=== PATIENT | female | born 1945 | race Caucasian/White ===

== ENCOUNTER → 2016-12-29 | Outpatient (CLI) | payer OTHER ==
[~2016-12-29] MED LIST: ATOR-24 PO; CALCTAB5 PO; GLUC10007 PO; HYDR25TA5; MULT-222 PO
[2016-12-29 13:24] LABS: BASO % 0.5 %; BASO ABS # 0.03 K/uL (0-0.2); COMPLETE YES; EOS % 3.7 %; HEMATOCRIT 41.6 % (37-47); IG% 0.2 %; LYMPH % 24.4 %; LYMPH ABS # 1.43 K/uL (1.2-3.4); MEAN CORPUSCULAR HEMOGLOBIN 29.9 pg (25-34); MEAN CORPUSCULAR HGB CONC 33.2 g/dl (32-36); MEAN PLATELET VOLUME 11.6 fL (7.4-10.4); MONO % 11.2 %; PLATELET COUNT 234 K/uL (130-400); RED BLOOD COUNT 4.62 M/uL (4.2-5.4); WHITE BLOOD COUNT 5.87 K/uL (4.8-10.8)
[2016-12-29 13:42] LABS: ALT/SGPT 30 U/L (12-78); AST/SGOT 19 U/L (15-37); BLOOD UREA NITROGEN 16 mg/dl (7-18); BUN/CREATININE RATIO 16.8 (10-20); CALCIUM 9.4 mg/dl (8.5-10.1); CARBON DIOXIDE 30 mmol/L (21-32); CHLORIDE 101 mmol/L (98-107); CHOLESTEROL 207 mg/dl (0-200); CREATININE 0.93 mg/dl (0.60-1.20); GLUCOSE 96 mg/dl (70-99); POTASSIUM 3.3 mmol/L (3.5-5.1); SODIUM 141 mmol/L (136-145); TRIGLYCERIDES 132 mg/dl (0-150); VERY LOW DENSITY LIPOPROT CALC 26 mg/dl
[2016-12-29 13:45] LABS: ALB/GLOB RATIO 0.9 (0.9-2); ALKALINE PHOSPHATASE 79 U/L (45-117); CHOLESTEROL/HDL RATIO 3.2; HDL CHOLESTEROL 65 mg/dl; LDL CHOLESTEROL CALCULATED 116 mg/dl
[2016-12-29 14:08] LABS: ESTIMATED AVERAGE GLUCOSE 128 mg/dl; HA1C FLAG Normal (Normal)
== END | disposition home or self-care (01) ==
LOC: C.LABBC 10:21
PROVIDERS: ATTEND Family Medicine
DX: I10 Essential (primary) hypertension (principal); R73.03 Prediabetes; Z13.0 Encounter for screening for diseases of the blood and blood-forming organs and certain disorders involving the immune mechanism; E78.5 Hyperlipidemia, unspecified; Z11.59 Encounter for screening for other viral diseases; R73.09 Other abnormal glucose

== ENCOUNTER → 2017-02-07 | Outpatient (CLI) | payer OTHER ==
--- NOTE | 2017-02-07 13:57 | MAMMOGRAPHY REPORT ---
UNILATERAL LEFT DIGITAL DIAGNOSTIC MAMMOGRAM WITH CAD AND TARGETED LEFT ULTRASOUND: 02/07/2017 CLINICAL HISTORY: History of left mastectomy status post implant reconstruction approximately 40 yea rs ago. The patient reports that the implant contains both silicone and saline. The patient report s a new lump in the left breast since October, which has likely increased in size since she first fe lt it. TECHNIQUE: Current study was also evaluated with a Computer Aided Detection (CAD) system. Left CC and MLO views were obtained. COMPARISON: Comparison is made to exams dated: 02/07/2017 ultrasound, 09/29/2016 mammogram, 09/24/2015 mammogram, 09/07/2014 mammogram, 09/01/2013 mammogram, and 08/28/2012 mammogram - [facility]. BREAST COMPOSITION: The tissue of the left breast is almost entirely fatty. FINDINGS: First, targeted ultrasound was performed of the area of the palpable lump pointed out by the patient , in the lower outer quadrant aspect of the reconstructed breast. At the site of the palpable lump there is an oval mass which is too large to measure on ultrasound but measures at least 4.7 x 2.7 x 3.2 cm. The mass is partially cystic, with mobile debris seen within the mass. There are also thic kened echogenic septations seen within the mass. No clear internal vascularity is evident. No doug r intracapsular rupture of the left breast implant is evident, although evaluation is limited on ult rasound and MRI is more sensitive for detection for rupture. Mammograms were attempted of the left breast to better evaluate the mass. The exam is markedly limi rebeca due to the silicone implant as it is fixed and not movable. There is a mass seen within the lef t lateral breast on the cc view which is partially visualized on the cc view and not visualized on t he MLO view. The visualized margins are circumscribed and there are punctate densities seen within the mass, which likely represent calcifications. No clear extracapsular silicone is seen to suggest extracapsular rupture. The mass is indeterminate and could represent a chronic fluid collection but a mixed cystic and beckie d mass is not excluded. Therefore recommend ultrasound-guided biopsy for further evaluation. The p atient denies any known trauma to this region to suggest hematoma. IMPRESSION: ACR BI-RADS CATEGORY 4: SUSPICIOUS, TARGETED ULTRASOUND ACR BI-RADS CATEGORY 4: SUSPICI OUS 1. Partially cystic mass measuring at least 4.7 cm at the site of the palpable lump in the left low er outer quadrant. The mass is indeterminate and could represent a chronic fluid collection versus a mixed cystic and solid mass. Recommend ultrasound-guided core needle biopsy for further evaluatio n. 2. No definite rupture of the left breast implant although evaluation is limited on ultrasound. If there is clinical concern for implant rupture, consider breast MRI for further evaluation. A phone call was made to the physician's office to confirm faxed results were received. The patient has been verbally notified of the results. She tentatively scheduled the biopsy before leaving the department. Approximately 10% of breast cancers are not detected with mammography. A negative mammographic repor t should not delay biopsy if a clinically suggestive mass is present. Ninoska Heller M.D. ah/:02/07/2017 11:23:50 Sewer Pipe Sorter: Corina SARGENT)(Tiffanie), [facility] letter sent: Abnormal 4/5 BI-RADS Code: ACR BI-RADS Category 4: Suspicious Ultrasound BI-RADS: ACR BI-RADS Category 4: Suspic ious
== END | disposition home or self-care (01) ==
LOC: C.MAMM 09:48
PROVIDERS: ATTEND Plastic Surgery
DX: N64.59 Other signs and symptoms in breast (principal); T85.9XXA Unspecified complication of internal prosthetic device, implant and graft, initial encounter; Y83.2 Surgical operation with anastomosis, bypass or graft as the cause of abnormal reaction of the patient, or of later complication, without mention of misadventure at the time of the procedure; N63 Unspecified lump in breast

== ENCOUNTER → 2017-02-19 | Outpatient (CLI) | payer OTHER ==
--- NOTE | 2017-02-19 10:05 | Discharge Instructions ---
Discharge Instructions Procedure Procedure Date: February 19, 2017. Reason for visit: Left Mass. Discharge Discharge Date: February 19, 2017. Discharge Diagnosis: post left breast ultrasound guided core biopsy Instructions Activity Recommendations: Additional Limitations (see below) Return to School/Work: no limitations Recommended Home Diet: No Limitations Provider Instructions: ACTIVITY RECOMMENDATIONS: * No lifting, pushing, pulling or exercising the affected side for three days. RETURN TO SCHOOL/WORK: * You may return to work/school after the procedure, but do not perform any strenuous activities for 24 to 48 hours. MEDICATIONS: * Tylenol (two 325 mg) every four to six hours if needed for mild pain (if not allergic to Tylenol). DIET: * Resume previous diet. SPECIAL CARE INSTRUCTIONS: * Keep biopsy site dry for 24 hours. May shower after 24 hours, but do not soak (bathe) incision. * May remove Tegaderm (plastic patch) tomorrow AFTER showering. * Leave the steri-strips on for one week. Allow the steri-strips to fall off by themselves. If not off after one week, you may remove them. You may place a Bandaid crosswise over the strips, if desired. * Apply ice 10 minutes on and 10 minutes off as needed. * Wear a bra at bedtime to sleep more comfortably for 2-3 days. * Your referring physician should have the results after approximately 5 to 7 business days. * Call for unusual bleeding, fever, drainage, etc or if you have any questions call [phone] during normal business hours or after hours call Dr Tena, . FOLLOW UP VISIT: Follow-up with Referring Physician as scheduled. Allergies Coded Allergies: Penicillins (Verified Allergy, Severe, ANAPHYLAXIS, 06/29/15) Adhesives (Verified Allergy, Mild, RASH, 06/29/15) Sulfamethoxazole w/Trimethoprim (Verified Allergy, Mild, RASH, 06/29/15) Mariella Miller Recommendations: Call your doctor if: * Temperature above 101 degrees * Pain not relieved by pain medicine ordered * There is increased drainage or redness from any incision * You have any unanswered questions or concerns. Your Doctors Instructions noted above were prepared by provider Radha Tena. Patient Signature Section: Patient Instructions Signature Page Jeanine Hawley Patient (or Guardian) Signature/Date: I have read and understand the instructions given to me by my caregivers. Caregiver/RN/Doctor Signature/Date: The above-named patient and/or guardian has received patient instructions on this date. + Original Patient Signature Page (only) stays with chart. Please make copy for patient.
--- NOTE | 2017-02-19 12:26 | MAMMOGRAPHY REPORT ---
ULTRASOUND GUIDED BIOPSY LEFT BREAST: 02/19/2017 CLINICAL HISTORY: Indeterminate visible and palpable mass in the lower outer quadrant of the left br east. History of remote prior mastectomy and silicone/saline implant reconstruction of the left joe ast. Patient presented for tissue sampling of the mass. COMPARISON: Comparison is made to exams dated: 02/07/2017 mammogram, 02/07/2017 ultrasound, 09/29/2016 mammogram, 09/24/2015 mammogram, 09/07/2014 mammogram, and 09/01/2013 mammogram - [facility]. PATIENT CONSENT: The procedure, risks and benefits were discussed with the patient and informed writ ten consent was obtained. Specific risks to this procedure include: bleeding, infection, puncture of adjacent structure including damage to the implant, nontarget biopsy, sampling error, middle allerg y and medication reaction. PROCEDURE DESCRIPTION: A time out was performed and the left breast was agreed as the site of biopsy . The skin was prepped and draped in the usual sterile fashion. The hypoechoic mixed solid and cysti c mass in the lower outer quadrant of the left reconstructed breast was chosen as the target for bio psy. Subcutaneous and intraparenchymal 1% buffered lidocaine was administered as local anesthesia. First a 22-gauge needle was advanced into the mass to obtain fluid sampling of the internal cystic c omponent. Approximately 20 mL of reddish brownish thick cloudy fluid were aspirated and [facility] to [facility] within the syringe it was collected. Then core biopsy samples were obtained along the periphe ry of the mass targeting a more solid component. 5 core biopsy samples were taken with a 14 gauge A chieve biopsy device. A metallic marker was placed at the biopsy site. Hemostasis was achieved after manual compression. The patient tolerated the procedure well and there was no immediate complicatio n. The core biopsy samples were collected on a moistened Telfa pad and expeditiously sent "fresh" t o the pathology department. Post procedure mammography was deferred. IMPRESSION: ULTRASOUND GUIDED BIOPSY Status post ultrasound-guided aspiration and core biopsy of an indeterminate solid and cystic mass i n the lower outer quadrant of the left breast. A biopsy marker clip was placed at the site of biops y. The patient will receive notification of the pathology results from her referring physician. Radha Tena M.D. ay/:02/19/2017 12:15:27 Real Estate Firm Manager: Valencia CUEVA(R)(M), [facility]
== END | disposition home or self-care (01) ==
LOC: C.MAMM 08:45
PROVIDERS: ATTEND Plastic Surgery
DX: N63 Unspecified lump in breast (principal); R92.0 Mammographic microcalcification found on diagnostic imaging of breast

== ENCOUNTER → 2017-04-16 | Outpatient (CLI) | payer OTHER ==
--- NOTE | 2017-04-16 08:29 | DIAGNOSTIC IMAGING REPORT ---
RIGHT SHOULDER MIN 2 VIEWS CLINICAL HISTORY: Right shoulder pain. Shoulder impingement. COMPARISON: None FINDINGS: Alignment of the right shoulder is anatomic. There is no fracture or suspicious lesion. A 5 m calcific density along the superolateral aspect of the right humeral head suggests calcific tendinitis. There is moderate AC joint arthrosis and mild glenohumeral joint arthrosis. IMPRESSION: 1. No acute fracture. 2. Findings suggestive of calcific tendinitis of the rotator cuff. 3. Moderate osteoarthritis of the right acromioclavicular joint and mild osteoarthrosis of the right glenohumeral joint. Electronically signed by: Ari Joya M.D. 04/16/2017 8:28 AM Dictated Date/Time: 04/16/2017 8:26 AM
--- NOTE | 2017-04-16 08:37 | DIAGNOSTIC IMAGING REPORT ---
LEFT KNEE RADIOGRAPH WITH COMPARISON RIGHT KNEE RADIOGRAPHS CLINICAL HISTORY: Status post total knee replacement. COMPARISON: Knee radiograph December 28, 2014. FINDINGS: Alignment of the total right knee arthroplasty is anatomic. There is no periprosthetic fracture or lucency. There is moderate medial compartment joint space narrowing of the left knee as well as moderate joint space narrowing within the patellofemoral compartment with osteophytosis. Findings have moderately progressed since exam of December 28, 2014. There is no fracture or left knee joint effusion. A few calcific densities projecting posterior to the joint could reflect joint bodies. These measure up to 8 mm. IMPRESSION: 1. Moderate to severe osteoarthritis of the left knee, most pronounced within the medial and patellofemoral compartments. 2. No acute fracture or joint effusion of the left knee. 3. Suspected 8 mm joint body of the left knee. 4. Stable postoperative findings consistent with total right knee arthroplasty. Electronically signed by: Ari Joya M.D. 04/16/2017 8:36 AM Dictated Date/Time: 04/16/2017 8:33 AM
== END | disposition home or self-care (01) ==
LOC: C.RDSM 08:00
PROVIDERS: ATTEND Physician Assistant
DX: M75.41 Impingement syndrome of right shoulder (principal); M19.011 Primary osteoarthritis, right shoulder; M17.12 Unilateral primary osteoarthritis, left knee; Z96.651 Presence of right artificial knee joint

== ENCOUNTER → 2017-06-05 | Outpatient (CLI) | payer OTHER ==
--- NOTE | 2017-06-05 11:33 | DIAGNOSTIC IMAGING REPORT ---
RIGHT SHOULDER 3 VIEWS HISTORY: RIGHT SHOULDER PAIN Right COMPARISON: Right shoulder 04/16/2017. FINDINGS: There is no fracture or dislocation. The right clavicle is intact. Stable 5 mm calcification at the distal supraspinatus tendon. This is consistent with calcific tendinitis. Osteophytes at the posterior rim of the glenoid are again noted. This is consistent with mild degenerative change. There is also moderate degenerative changes within the AC joint. No radiopaque foreign bodies. IMPRESSION: 1. No fracture or dislocation within the right shoulder. 2. Supraspinatus calcific tendinitis, unchanged. 3. Degenerative changes are again noted. Electronically signed by: Melquiades Davidson M.D. 06/05/2017 11:31 AM Dictated Date/Time: 06/05/2017 11:29 AM
== END | disposition home or self-care (01) ==
LOC: C.RDSM 11:10
PROVIDERS: ATTEND Physician Assistant
DX: M25.511 Pain in right shoulder (principal); M75.31 Calcific tendinitis of right shoulder

== ENCOUNTER → 2017-07-30 | Outpatient (CLI) | payer OTHER | END | disposition home or self-care (01) | LOC: C.PATHSPEC 12:50 | PROVIDERS: ATTEND Dermatology | DX: L82.1 Other seborrheic keratosis (principal) ==

== ENCOUNTER → 2017-10-02 | Outpatient (CLI) | payer OTHER ==
--- NOTE | 2017-10-03 15:59 | MAMMOGRAPHY REPORT ---
UNILATERAL RIGHT DIGITAL SCREENING MAMMOGRAM TOMOSYNTHESIS WITH CAD: 10/02/2017 CLINICAL HISTORY: Asymptomatic. Personal history of breast cancer. TECHNIQUE: Right breast tomosynthesis in addition to standard 2D mammography was performed. Current maude pike was also evaluated with a Computer Aided Detection (CAD) system. COMPARISON: Comparison is made to exams dated: 02/19/2017 ultrasound biopsy, 02/07/2017 mammogram, 02/07 ultrasound, 09/29/2016 mammogram, 09/24/2015 mammogram, and 09/07/2014 mammogram - [facility]. BREAST COMPOSITION: The tissue of the right breast is heterogeneously dense, which may obscure small masses. FINDINGS: The parenchymal pattern is similar to prior mammograms. There is stable asymmetry in the l ateral right breast. Stable postsurgical changes with numerous benign rim calcifications scattered i n the right breast. No suspicious mass, architectural distortion or cluster of microcalcifications i s seen. IMPRESSION: ACR BI-RADS CATEGORY 1: NEGATIVE There is no mammographic evidence of malignancy. A 1 year screening mammogram is recommended. The pa tient will receive written notification of the results. Approximately 10% of breast cancers are not detected with mammography. A negative mammographic report should not delay biopsy if a clinically suggestive mass is present. Radha Tena M.D. ay/:10/02/2017 15:38:26 Career Services Director: Essie Gonzalez, [facility] letter sent: Normal 1/2 BI-RADS Code: ACR BI-RADS Category 1: Negative
== END | disposition home or self-care (01) ==
LOC: C.MAMM 09:36
PROVIDERS: ATTEND Internal Medicine
DX: Z12.31 Encounter for screening mammogram for malignant neoplasm of breast (principal); Z85.3 Personal history of malignant neoplasm of breast; Z08 Encounter for follow-up examination after completed treatment for malignant neoplasm; Z90.12 Acquired absence of left breast and nipple

== ENCOUNTER → 2018-01-24 | Outpatient (CLI) | payer OTHER | END | disposition home or self-care (01) | LOC: C.PATHSPEC 18:11 | PROVIDERS: ATTEND Plastic Surgery | DX: L98.9 Disorder of the skin and subcutaneous tissue, unspecified (principal) ==

== ENCOUNTER → 2018-02-07 | Outpatient (CLI) | payer OTHER ==
[2018-02-07 10:39] LABS: HEMATOCRIT 40.3 % (37-47); HEMOGLOBIN 13.4 g/dL (12.0-16.0); MEAN CELL VOLUME 90.4 fL (80-100); MEAN CORPUSCULAR HGB CONC 33.3 g/dl (32-36); PLATELET COUNT 234 K/uL (130-400); RED CELL DISTRIBUTION WIDTH CV 14.2 % (11.5-14.5); RED CELL DISTRIBUTION WIDTH SD 46.9 fL (36.4-46.3); WHITE BLOOD COUNT 5.79 K/uL (4.8-10.8)
[2018-02-07 10:53] LABS: ALBUMIN 3.7 gm/dl (3.4-5.0); ALT/SGPT 33 U/L (12-78); AST/SGOT 18 U/L (15-37); BLOOD UREA NITROGEN 18 mg/dl (7-18); CALCIUM 9.3 mg/dl (8.5-10.1); CARBON DIOXIDE 33 mmol/L (21-32); CHOLESTEROL 178 mg/dl (0-200); CREATININE 0.93 mg/dl (0.60-1.20); GLUCOSE 98 mg/dl (70-99); POTASSIUM 3.5 mmol/L (3.5-5.1); SODIUM 140 mmol/L (136-145)
[2018-02-07 10:55] LABS: ALKALINE PHOSPHATASE 66 U/L (45-117); LDL CHOLESTEROL CALCULATED 96 mg/dl; TOTAL PROTEIN 7.3 gm/dl (6.4-8.2)
[2018-02-07 11:47] LABS: HEMOGLOBIN A1C 6.1 % (4.5-5.6)
== END | disposition home or self-care (01) ==
LOC: C.LABBC 08:26
PROVIDERS: ATTEND Internal Medicine
DX: Z00.00 Encounter for general adult medical examination without abnormal findings (principal); I10 Essential (primary) hypertension; E78.5 Hyperlipidemia, unspecified; R73.03 Prediabetes

== ENCOUNTER 2018-06-12 05:06 | Inpatient (IN) | payer OTHER, BC ==
[2018-05-27 09:43] VITALS: BMI 29.0
--- NOTE | 2018-05-28 14:46 | History and Physical ---
History & Physical Date & Time of Service: May 28, 2018 at 14:31 Chief Complaint: Left Knee Degenerative Joint Disease Primary Care Physician: Mariana Hopper M.D. History of Present Illness Source: patient Patient is a pleasant 73-year-old female who has been treated at our office for many years for left knee pain. Her left knee pain has progressively worsened over the last 6-12 months. Pain is mainly in the medial aspect of her left knee. The pain is increased with activity and weightbearing. She has decreasing activities daily living due to pain. The pain in her knee has affected her range of motion. She occasionally uses her cane to assist with ambulation for long distances. Aggravating activities include walking, going up and down steps and pain at rest and night. She has tried conservative treatment such as nonsteroidal anti-inflammatory drugs, physical therapy, corticosteroid injections and viscose supplementation. She continues to have pain in her left knee. X-rays of her left knee of been obtained and show end- stage osteoarthritis of her left knee with osteophyte formation. Due to her progressively worsening symptoms and failure of conservative treatment, surgical attention was discussed. She elected to proceed with an elective left total knee arthroplasty by Dr. Woodall June 12, 2018. Past Medical/Surgical History Medical Problems: 1. History of breast cancer status post radical mastectomy and reconstructive surgery 2. Hypertension 3. High cholesterol 4. Osteoarthritis Past surgical history: 1. Status post radical mastectomy in 1970s with reconstructive surgery 2. Tonsillectomy with adenoidectomy 3. Left knee arthroscopy 4. Left shoulder rotator cuff repair in November 2013 5. Right total knee arthroplasty in October 2014 Family History Both of her parents were smokers and alcoholics. She states that they both in their 60s. Her father from lung cancer and her mother with COPD. Social History Patient lives with her in a single level home. She does have a walker to use postoperatively. She does drink 1-2 alcoholic drinks per week, occasionally on the weekends.She does have a daily cup of tea. 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 Smoking Status: Never Smoker Alcohol Use: occasionally Drug Use: none Marital Status: Housing status: lives with family Occupational Status: employed Allergies Coded Allergies: Penicillins (Verified Allergy, Severe, ANAPHYLAXIS, 05/27/18) Adhesives (Verified Allergy, Mild, RASH, 05/27/18) Sulfamethoxazole w/Trimethoprim (Verified Allergy, Mild, RASH, 05/27/18) Home Medications Scheduled Atorvastatin (Lipitor), 40 MG PO HS Hydrochlorothiazide (Hydrochlorothiazide), 1 TAB PO QAM Multiple Vitamins W/ Minerals (Multi For Her), 1 TAB PO QAM Review of Systems Occasional headaches due to stress. 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 She wears glasses. Constitutional: No fever, No chills, No sweats, No weight loss Eyes: No worsening of vision, No redness ENT: No hearing loss, No unusual epistaxis, No nasal symptoms, No sore throat, No tinnitus, No dental problems Respiratory: No cough, No sputum, No wheezing, No shortness of breath Cardiovascular: No chest pain, No edema, No palpitations Abdomen: No pain, No nausea, No vomiting, No diarrhea, No constipation Musculoskeletal: + joint pain (Left knee), No swelling (Mild edema of left ankle), No calf pain Genitourinary - Female: No dysuria, No urinary frequency, No urinary urgency, No urinary incontinence, No urinary retention, No hematuria Neurologic: No memory loss, No numbness/tingling Psychiatric: No depression symptoms, No anxiety Endocrine: No fatigue Hematologic / Lymphatic: No abnormal bleeding/bruising, No clotting problems Integumentary: No rash Allergic / Immunologic: No poor healing Physical Exam Height: 5 feet 2 inches Weight: 165 pounds General Appearance: WD/WN, no apparent distress Head: normocephalic, atraumatic Eyes: normal inspection, PERRL, EOMI, sclerae normal ENT: normal ENT inspection, hearing grossly normal, TMs normal, pharynx normal Neck: supple, no adenopathy, thyroid normal, no carotid bruits, trachea midline Respiratory/Chest: chest non-tender, lungs clear, normal breath sounds, no respiratory distress, no accessory muscle use Cardiovascular: regular rate, rhythm, no gallop, no murmur, normal peripheral pulses Abdomen/GI: normal bowel sounds, non tender, soft Extremities/Musculoskelatal: no calf tenderness, normal capillary refill, no pedal edema, normal range of motion, + pertinent finding (Exam of her left knee reveals no effusion. A stable ligamentous exam. Extensor mechanism is intact. No erythema, warmth or ecchymosis to the left knee. She is medial joint line tenderness with palpation. She also has some posterior discomfort with palpation. Range of motion 6 of extension to about 120 of flexion. Mild crepitation with range of motion. Stable ligamentous exam.) Neurologic/Psych: no motor/sensory deficits, alert, normal mood/affect, normal reflexes, oriented x 3 Skin: normal color, warm/dry, no rash Lymphatic: no adenopathy Diagnostics Laboratory Results CBC, BMP, PT/PTT, type and screen, UA, chest x-ray, EKG pending Diagnostic Radiology Diagnostic imaging: Bilateral AP standing, lateral and merchant views of both knees show stable right total knee arthroplasty. Left knee reveals end-stage azat-oh-ogoc arthritis of her medial compartment. With osteophyte formation present no acute fracture dislocation. She does have some Subchondral sclerosis. No subluxation. Impression Assessment and Plan Assessment: End-stage osteoarthritis left knee Plan: Patient is scheduled for an elective left total knee arthroplasty by Dr. Sumanth Woodall on June 12, 2018. Risks and complications of surgery were explained to the patient and include but are not limited to infection, pain , Bleeding, scarring, nerve and blood vessel damage, wound problems, weakness, stiffness, incomplete relief of symptoms, hardware failure, loosening, wear, blood clots, embolisms, fracture, need for manipulation, heart attack, stroke and . All questions were answered and informed consent will be obtained on the day of surgery. She will have preadmission testing later today which we will obtain a preoperative CBC, BMP, PT/PTT, type and screen, UA, EKG, chest x- ray. She will also have preoperative medical clearance by her family physician Dr. Hopper. The surface course was discussed. She does have a walker which she can use after surgery. She would like to be discharged home with in-home health. We will use Coumadin for DVT prophylaxis with an INR goal of 1.5-2.2. She will follow up with Dr. Woodall approximately 2 weeks after surgery for staple removal. All questions were answered today. She will call with any further problems, questions or concerns. Advanced Directives Existing Living Will: Yes Existing Power of Senior Human Resources Representative: Yes Resuscitation Status VTE Prophylaxis Will order VTE Prophylaxis: Yes
--- NOTE | 2018-05-29 10:39 | PAT Medication Instructions ---
Service Date May 29, 2018. Current Home Medication List Atorvastatin (Lipitor), 40 MG PO HS Hydrochlorothiazide (Hydrochlorothiazide), 1 TAB PO QAM Multiple Vitamins W/ Minerals (Multi For Her), 1 TAB PO QAM Medication Instructions For Your Scheduled Surgery - Hold the following medications the morning of surgery: Hydrochlorothiazide (Hydrochlorothiazide), 1 TAB PO QAM Multiple Vitamins W/ Minerals (Multi For Her), 1 TAB PO QAM - Take the following medications as scheduled the night before surgery: Atorvastatin (Lipitor), 40 MG PO HS If you have any questions please call us at [phone] or [phone] or [phone]
[2018-05-29 11:22] LABS: CALCIUM 8.8 mg/dl (8.5-10.1); POTASSIUM 3.2 mmol/L (3.5-5.1)
--- NOTE | 2018-05-29 12:06 | DIAGNOSTIC IMAGING REPORT ---
TWO VIEW CHEST CLINICAL HISTORY: Preoperative examination. FINDINGS: PA and lateral chest radiographs are compared to study dated 10/09/2014. A calcified breast implant projects over the left chest. The cardiomediastinal silhouette is unremarkable noting atherosclerotic calcification of the thoracic aorta. The lungs and pleural spaces are clear. There is no pneumothorax. The skeletal structures are osteopenic. Degenerative change and scoliosis are noted in the thoracic spine. IMPRESSION: No active disease in the chest. Electronically signed by: Adriano Smiley M.D. 05/29/2018 12:05 PM Dictated Date/Time: 05/29/2018 12:04 PM
[2018-05-29 12:24] LABS: BASO % 0.6 %; BASO ABS # 0.04 K/uL (0-0.2); EOS % 2.4 %; EOS ABS # 0.17 K/uL (0-0.5); HEMATOCRIT 43.3 % (37-47); HEMOGLOBIN 14.1 g/dL (12.0-16.0); IG# 0.01 K/uL (0.00-0.02); LYMPH % 20.5 %; LYMPH ABS # 1.44 K/uL (1.2-3.4); MEAN CELL VOLUME 92.3 fL (80-100); MEAN CORPUSCULAR HEMOGLOBIN 30.1 pg (25-34); MEAN CORPUSCULAR HGB CONC 32.6 g/dl (32-36); MONO % 8.8 %; MONO ABS # 0.62 K/uL (0.11-0.59); NEUT % 67.6 %; NEUT ABS # 4.76 K/uL (1.4-6.5); PLATELET COUNT 214 K/uL (130-400); RED CELL DISTRIBUTION WIDTH CV 14.5 % (11.5-14.5); RED CELL DISTRIBUTION WIDTH SD 49.3 fL (36.4-46.3); WHITE BLOOD COUNT 7.04 K/uL (4.8-10.8)
[2018-05-29 12:47] LABS: PTT PATIENT 23.4 SECONDS (21.0-31.0)
[~2018-06-12] VITALS: Ht 157.5 cm; Wt 75.0 kg
[2018-06-12] VITALS (10 sets, daily range): BP systolic 110–204; BP diastolic 65–86; PULSE 62–85; TEMP 36.5–37.2; O2SAT 94–100; Ht 157.5 cm; Wt 75.0 kg
[~2018-06-12 05:06] MED LIST changes: -CALCTAB5 PO; -GLUC10007 PO; -HYDR25TA5; +HYDR25TA5 PO
[2018-06-12] MEDS ORDERED: LACTATED RINGER'S 1000ML IV SCH (06:00)
[2018-06-12] MEDS ORDERED: LACTATED RINGER'S 1000ML 1,000 ML IV SCH (06:00)
[2018-06-12] MEDS ORDERED: VANCOMYCIN IV 1,250 MG in SODIUM CHLORIDE 0.9% 250ML 250 ML IV SCH (06:00)
[2018-06-12] MEDS ORDERED: TRANEXAMIC ACID INJ 1,000 MG x 2 Bags IV SCH ×2 (06:00)
[2018-06-12] MEDS ORDERED: ROPIVACAINE 5MG/ML 30 ML 150 MG, BUPIVACAINE 0.5% MPF INJ 30 ML, EpINEphrine HCL INJ 0.... INFIL SCH ×8 (06:00)
[2018-06-12] MEDS ORDERED: LACTATED RINGER'S 1000ML 500 ML IV SCH (06:00)
[2018-06-12] MEDS ORDERED: POTA10CA28 PO (06:01)
--- NOTE | 2018-06-12 06:15 | History & Physical Bridge Note ---
H&P Re-Evaluation Bridge Note: I have examined the patient, reviewed the History & Physical and in the interval since the performance of the History & Physical I have noted the following changes of clinical significance:consent obtained. No changes noted
[2018-06-12] MEDS ORDERED: ORTHO JOINT ANESTHETIC ONE (06:26)
[2018-06-12] MEDS ORDERED: POVIDONE-IODINE OP SOLN 30 ML BTL ONE (06:26)
[2018-06-12] MEDS ORDERED: ROPIVACAINE 0.5% 5 MG/ML 30 ML VIAL ONE (06:27)
[2018-06-12] MEDS ORDERED: BUPIVACAINE 0.5 % 5 MG/1 ML PF 10ML VIAL ONE (06:27)
[2018-06-12] MEDS ORDERED: BUPIVACAINE 0.25% 30 ML VIAL ONE (06:28)
[2018-06-12] MEDS ORDERED: FENTANYL CITRATE INJ 50 MCG/1 ML 2 ML VIAL ONE ×2 (06:37)
[2018-06-12] MEDS ORDERED: MIDAZOLAM HCL 1 MG/ML 2ML VIAL ONE ×2 (06:38→06:59)
[2018-06-12] MEDS ORDERED: LIDOCAINE HCL 2% 2 ML VIAL (20MG/ML) ONE ×2 (07:48→08:10)
[2018-06-12] MEDS ORDERED: ONDANSETRON INJ 2 MG/ML 2 ML VIAL ONE (07:48)
[2018-06-12] MEDS ORDERED: DiphenhydrAMINE HCL 50 MG/ML VIAL ONE (07:48)
[2018-06-12] MEDS ORDERED: PROPOFOL IV EMULSION 10 MG/ML 20 ML VIAL ONE ×2 (07:48→08:10)
--- NOTE | 2018-06-12 08:27 | [facility] Post Operative Brief Note ---
Immediate Operative Summary Operative Date Jun 12, 2018. Pre-Operative Diagnosis Left Knee Degenerative Joint Disease Post-Operative Diagnosis Left Knee Degenerative Joint Disease Procedure(s) Performed Left Total Knee Arthroplasty Surgeon Dr. Woodall Housekeeping Aid Surgeon(s) Ru Parnell PA-C Estimated Blood Loss 50 ml Findings Consistent with Post-Op Diagnosis Fluids (cc crystalloids) 1400cc Specimens A. Left Knee Bone and Tissue Drains None Anesthesia Type MAC Spinal Regional Complication(s) none Disposition Accompanied Pt To Recover: no Disposition: Recovery Room / PACU Overlapping Procedure I was immediately available: during the entire case
[2018-06-12] MEDS ORDERED: METOCLOPRAMIDE HCL INJ 5 MG/ML 2 ML VIAL IV PRN (08:45)
[2018-06-12] MEDS ORDERED: DiphenhydrAMINE HCL 50 MG/ML VIAL IV PRN (08:45)
[2018-06-12] MEDS ORDERED: VANCOMYCIN CONSULT ACTIVE PRN (08:45)
[2018-06-12] MEDS ORDERED: ACETAMINOPHEN IV 100 ML IV PRN (08:45)
[2018-06-12] MEDS ORDERED: MAGNESIUM HYDROXIDE SUSP 30 ML UDC PO PRN (08:45)
[2018-06-12] MEDS ORDERED: ALUMINUM/MAGNESIUM/SIMETH (MAALOX MAX) 30 ML UDC PO PRN (08:45)
[2018-06-12] MEDS ORDERED: MoRPHine SULFATE 2 MG/ML CARP IV PRN (08:45)
[2018-06-12] MEDS ORDERED: BISACODYL 10 MG SUPP PR PRN (08:45)
[2018-06-12] MEDS ORDERED: OXYCODONE HCL IR 5 MG TAB (IMMEDIATE RELEASE) PO PRN (08:45)
[2018-06-12] MEDS ORDERED: ONDANSETRON INJ 2 MG/ML 2 ML VIAL IV PRN ×2 (08:45→09:00)
[2018-06-12] MEDS ORDERED: ACETAMINOPHEN 325 MG TAB PO PRN (08:45)
--- NOTE | 2018-06-12 08:55 | OPERATIVE REPORT ---
DATE OF OPERATION: 06/12/2018 SURGEON: Sumanth Woodall MD. MATERIAL HANDLING WAREHOUSE SUPERVISOR: Ru Parnell PA-C. No resident or fellow available. PREOPERATIVE DIAGNOSIS: Osteoarthritis, left knee with flexion and varus deformity. POSTOPERATIVE DIAGNOSIS: Same. OPERATION PERFORMED: Cemented left total knee replacement. SUMMARY IMPLANTS: Size 2 left posterior cruciate substituting femur, size 2 mobile bearing tray, tibia size 12.5 x2, posterior cruciate substituting rotating platform insert. Oval domed 3 pegged patella size 35. Two bags of Palacos G cement. ESTIMATED BLOOD LOSS: 50 mL. CRYSTALLOID: 1400 mL. PROPHYLAXIS: DVT prophylaxis with Coumadin. PERIOPERATIVE SITUATION: Medically cleared female with intractable knee pain with physical exam and x-ray consistent with severe medial compartment and patellofemoral disease. At this point in time, wished to proceed with surgical treatment. Risks and consequences discussed. DESCRIPTION OF OPERATION: Patient appropriately identified, site verified, consent verified, vancomycin confirmed as being given. The left lower extremity was prepped and draped in the usual routine fashion. TXA was also given preop. Tourniquet was inflated to 300 mmHg after exsanguination of the limb with a rubber Esmarch bandage for a total of 45 minutes. A midline exposure was utilized. Parapatellar arthrotomy performed. Synovectomy and osteophytes resected. Distal femur entered. Distal femur resected 14 mm. Tibia subluxated after all soft tissue released and 4 mm resected. Extension gap was excellent. Tibia sized to a 2. Femur sized between a 2-1/2 and a 2, was measured 2-1/2, cut 2. There was no notching. Flexion gap was checked, it was excellent. Box cut made. Required 1 slight revision medially to get the implant to seat well, it did. The size 2 tibial tray was then broached and reamed. A 12.5 spacer gave excellent stability and midrange flexion, it did not lose extension. The patella was then sized to a 35. It was resected leaving 15-16 mm. Seating holes made. The trial tracked well. Knee was then injected with the Orthomix. The knee was then irrigated with Betadine Pulsavac. After all implants removed, the permanent cemented into position. After 12 minutes, the tourniquet deflated. After 14 minutes, the knee flexed. The spacer removed. No cement removal was required. Wound was irrigated with Betadine and then permanent liner seated. The knee reduced and the wound closed with #2 Vicryl, 1-0 Vicryl, 2-0 Vicryl, and stainless steel clips. Appropriate dressing applied. The patient was then transferred to recovery in satisfactory condition having tolerated the procedure well. I attest to the content of the Intraoperative Record and any orders documented therein. Any exception s are noted below.
[2018-06-12] MEDS: DOCUSATE SODIUM 100 MG CAP PO SCH ×2 (09:00→21:00)
[2018-06-12] MEDS ORDERED: KETOROLAC TROMETHAMINE 30 MG/ML VIAL IV. PRN (09:00)
[2018-06-12] MEDS ORDERED: ATROPINE SULFATE 0.1 MG/ML 5ML SYR IV PRN (09:00)
[2018-06-12] MEDS ORDERED: MoRPHine SULFATE 10 MG/ML CARP/VIAL IV PRN (09:00)
[2018-06-12] MEDS ORDERED: PHENYLEPHRINE 100MCG/ML 5ML SYR IV PRN (09:00)
[2018-06-12] MEDS: PANTOprazole SOD 40 MG TAB PO SCH (09:00)
[2018-06-12] MEDS ORDERED: EpHEDrine SULFATE INJ 50 MG/ML AMP IV PRN (09:00)
[2018-06-12] MEDS: HYDROCHLOROTHIAZIDE 25 MG TAB PO SCH (09:00)
[2018-06-12] MEDS: MULTIVITAMIN TAB PO SCH (09:00)
[2018-06-12] MEDS: POTASSIUM CHLORIDE 10 MEQ TABCR PO SCH (09:00)
--- NOTE | 2018-06-12 09:02 | DIAGNOSTIC IMAGING REPORT ---
L KNEE 2 VIEWS ROUTINE CLINICAL HISTORY: Postoperative study. COMPARISON: None. DISCUSSION: There are postsurgical changes of a total left knee arthroplasty and patellar resurfacing. The femoral tibial components appear well seated. There are no acute fractures. There are overlying skin shweta. There is air in soft tissues consistent with recent surgery. IMPRESSION: Postsurgical changes of a total left knee arthroplasty. Electronically signed by: Bang Cordero M.D. 06/12/2018 9:00 AM Dictated Date/Time: 06/12/2018 8:59 AM
--- NOTE | 2018-06-12 10:12 | Anesthesiology Progress Note ---
Anesthesia Post Op Note Date & Time Jun 12, 2018 at 10:12 Vital Signs Pain Intensity: 0 Vital Signs Past 12 Hours Date Time Temp Pulse Resp B/P (MAP) Pulse Ox O2 Delivery O2 Flow Rate FiO2 06/12/18 09:10 36.7 67 14 125/67 100 Nasal Cannula 2 06/12/18 09:05 36.7 66 14 133/58 100 Nasal Cannula 2 06/12/18 08:55 72 14 129/62 100 Nasal Cannula 2 06/12/18 08:45 81 14 133/76 100 Oxymask 10 06/12/18 08:35 36.9 94 14 112/62 100 Oxymask 10 06/12/18 05:40 37.2 85 20 204/86 97 Room Air Notes Mental Status: alert / awake / arousable, participated in evaluation Pt Amnestic to Procedure: Yes Nausea / Vomiting: adequately controlled Pain: adequately controlled Airway Patency, RR, SpO2: stable & adequate BP & HR: stable & adequate Hydration State: stable & adequate Anesthetic Complications: no major complications apparent
[2018-06-12] MEDS ORDERED: D5W AND 1/2NSS + 20MEQ KCL 1,000 ML IV SCH (11:00)
[2018-06-12] MEDS: KETOROLAC TROMETHAMINE 15 MG/ML VIAL IV. SCH ×3 (12:09→23:31)
--- NOTE | 2018-06-12 12:35 | [facility] Operative Report ---
Operative Report Operative Date Jun 12, 2018. Pre-Operative Diagnosis Left Knee Degenerative Joint Disease Post-Operative Diagnosis Left Knee Degenerative Joint Disease Procedure(s) Performed Left Total Knee Arthroplasty Surgeon Dr. Woodall Reimbursement Specialist Surgeon(s) Ru Parnell PA-C Estimated Blood Loss 50 ml Findings Left knee end-stage DJD Fluids 1400cc Specimens A. Left Knee Bone and Tissue Drains None Anesthesia Type MAC Spinal Regional Complication(s) none Disposition no Recovery Room / PACU Indications This 73-year-old white female presented to the office with complaints of intractable left knee pain. She had tried injection therapy, activity modification, physical therapy, and oral anti-inflammatories without lasting improvement. She elected to proceed with total knee arthroplasty in hopes of alleviating her pain. She previously had a right total knee arthroplasty and did very well with it. She elected to proceed with the same on the left. Preoperative imaging was obtained. Description of Procedure Patient was administered a spinal anesthetic and then taken to the operating room where she was given sedation. She was prepped and draped in usual sterile fashion. Please see Dr. Woodall's operative report for specifics of the procedure. I was present for the entire case from initial patient positioning through final wound closure. Assistance was provided in patient positioning, tissue retraction, hemostasis, trial implant placement, final implant placement , and final wound closure. Patient was taken to the recovery room in satisfactory condition. I attest to the content of the Intraoperative Record and any orders documented therein. Any exceptions are noted below.
[2018-06-12] MEDS ORDERED: WARF2TAB PO (12:38)
[2018-06-12] MEDS ORDERED: OXYC-57 PO (12:38)
--- NOTE | 2018-06-12 12:53 | Progress Note ---
Progress Note Date of Service Jun 12, 2018. Progress Note Dictated not read. Postop check. Doing well. Ate lunch. Denies nausea vomiting headache fever chills. Denies chest pain shortness of breath. Vital signs stable afebrile. Wound dressing clean dry and intact. Neurovascular check femoral sciatic nerve is normal. Postop x-rays look excellent. Assessment status post left total knee replacement continue care pathway. Meet with social work coordinator. Discharge tomorrow. Coumadin per nomogram.
[2018-06-12] MEDS: FERROUS GLUCONATE 324 MG TAB PO SCH ×2 (12:57→17:49)
--- NOTE | 2018-06-12 14:11 | DISCHARGE SUMMARY ---
CHIEF COMPLAINT: Left knee pain. HISTORY OF PRESENT ILLNESS: The patient underwent elective left total knee replacement. Hospital course has been uneventful. At this point in time, she is doing well. She denies chest pain, shortness of breath, fever, chills, nausea, vomiting or headache. Postop x-rays look excellent. PAST MEDICAL HISTORY: Remarkable for breast cancer, status post radical mastectomy and reconstructive surgery, hypertension, high cholesterol, osteoarthritis. PAST SURGICAL HISTORY: Includes radical mastectomy, reconstructive surgery of her breast, tonsillectomy and adenoidectomy, left knee arthroscopy, left shoulder replacement, right total knee replacement. FAMILY HISTORY: Reveals that both of her parents were smokers and alcohol users. They both in their 60s. Father from lung cancer, mother from COPD. SOCIAL HISTORY: Reveals she lives with her at home. She has a walker. She does have social drinking history. She does not have any tobacco use. She is . She lives with her family. She is employed. ALLERGIES: PENICILLIN, ADHESIVES AND SULFA. PREADMISSION MEDICATIONS: Include atorvastatin, hydrochlorothiazide and vitamins. REVIEW OF SYSTEMS: Reveals no chest pain, shortness of breath, fever, chills, nausea, vomiting or headache. ASSESSMENT AND PLAN: Status post left total knee replacement. She is doing well. Continue with care plan and discharge on 06/13/2018 if the hospital course continues uneventful.
[2018-06-12] MEDS ORDERED: TRANEXAMIC ACID INJ 1,000 MG in SODIUM CHLORIDE 0.9% 100ML 100 ML IV SCH (15:30)
[2018-06-12] MEDS ORDERED: WARFARIN SOD 5 MG TAB PO SCH (16:00)
[2018-06-12] MEDS ORDERED: VANCOMYCIN IV 1,000 MG in SODIUM CHLORIDE 0.9% 250ML 250 ML IV SCH (18:00)
[2018-06-12] MEDS ORDERED: ATORVASTATIN 40 MG TAB PO SCH (21:00)
[2018-06-13 03:10] VITALS: BP 150/77; PULSE 85; TEMP 36.9; O2SAT 97
[2018-06-13] MEDS: KETOROLAC TROMETHAMINE 15 MG/ML VIAL IV. SCH (05:35)
[2018-06-13 06:19] LABS: HEMATOCRIT 32.8 % (37-47); HEMOGLOBIN 10.6 g/dL (12.0-16.0); MEAN CELL VOLUME 91.4 fL (80-100); MEAN CORPUSCULAR HEMOGLOBIN 29.5 pg (25-34); MEAN CORPUSCULAR HGB CONC 32.3 g/dl (32-36); MEAN PLATELET VOLUME 10.9 fL (7.4-10.4); PLATELET COUNT 191 K/uL (130-400); RED CELL DISTRIBUTION WIDTH CV 14.6 % (11.5-14.5); RED CELL DISTRIBUTION WIDTH SD 49.2 fL (36.4-46.3); WHITE BLOOD COUNT 9.79 K/uL (4.8-10.8)
--- NOTE | 2018-06-13 06:44 | Progress Note ---
Progress Note Date of Service Jun 13, 2018. Progress Note Postop day #1 status post left total knee replacement. Patient has no complaints of chest pain shortness breath fever chills nausea vomiting or headache. Vital signs are stable she is afebrile. INR is 1.0, hematocrit is 32. Wound dressing clean dry and intact. Femoral sciatic nerve function is within normal limits calves nontender. Abdomen soft nontender. Assessment doing well discharge today. Discharge on 4 mg of Coumadin. Dictated not read
[2018-06-13 06:54] LABS: CALCIUM 8.3 mg/dl (8.5-10.1); CREATININE 0.84 mg/dl (0.60-1.20); POTASSIUM 3.9 mmol/L (3.5-5.1)
[2018-06-13 07:01] VITALS: BP 129/71; PULSE 71; TEMP 37; O2SAT 96
[2018-06-13] MEDS ORDERED: DEXAMETHASONE INJ 10 MG in SYRINGE 0 ML IV ONE (07:30)
[2018-06-13] MEDS ORDERED: WARFARIN SOD 5 MG TAB PO ONE (08:00)
--- NOTE | 2018-06-13 08:02 | Anesthesiology Progress Note ---
Anesthesia Post Op Note Date & Time Jun 13, 2018 at 08:02 Vital Signs Pain Intensity: 0.0 Vital Signs Past 12 Hours Date Time Temp Pulse Resp B/P (MAP) Pulse Ox O2 Delivery O2 Flow Rate FiO2 06/13/18 07:01 37.0 71 16 129/71 (90) 96 Room Air 06/13/18 03:10 36.9 85 16 150/77 (101) 97 Room Air 06/12/18 23:39 Room Air 06/12/18 23:06 36.9 79 20 122/70 (87) 94 Room Air Notes Mental Status: alert / awake / arousable, participated in evaluation Pt Amnestic to Procedure: Yes Nausea / Vomiting: adequately controlled Pain: adequately controlled Airway Patency, RR, SpO2: stable & adequate BP & HR: stable & adequate Hydration State: stable & adequate Neuraxial Anesthesia: sensory block resolved Anesthetic Complications: no major complications apparent
[2018-06-13] MEDS: PANTOprazole SOD 40 MG TAB PO SCH (08:33)
[2018-06-13] MEDS: DOCUSATE SODIUM 100 MG CAP PO SCH (08:33)
[2018-06-13] MEDS: POTASSIUM CHLORIDE 10 MEQ TABCR PO SCH (08:33)
[2018-06-13] MEDS: FERROUS GLUCONATE 324 MG TAB PO SCH (08:34)
[2018-06-13] MEDS: HYDROCHLOROTHIAZIDE 25 MG TAB PO SCH (08:34)
[2018-06-13] MEDS: MULTIVITAMIN TAB PO SCH (08:34)
--- NOTE | 2018-06-13 08:43 | Orthopedic Progress Note ---
Orthopedic Progress Note Date of Service Jun 13, 2018. Subjective Post OP Day: 1 Reports: feeling well, pain controlled w PO medications, Denies: complaints, chest pain, SOB, nausea / vomiting, light headedness, calf pain, using FORM RAISER Objective calves soft nontender, N/V intact, capillary refill less than 2 sec., dressing C /D/I, incision C/D/I, A&O x3, toes mobile, CMS intact Date Time Temp Pulse Resp B/P (MAP) Pulse Ox O2 Delivery O2 Flow Rate FiO2 06/13/18 07:01 37.0 71 16 129/71 (90) 96 Room Air 06/13/18 03:10 36.9 85 16 150/77 (101) 97 Room Air 06/12/18 23:39 Room Air 06/12/18 23:06 36.9 79 20 122/70 (87) 94 Room Air 06/12/18 19:34 36.6 83 20 137/68 (91) 97 Room Air 06/12/18 15:48 36.7 75 19 120/73 (89) 96 Room Air 06/12/18 15:30 95 Room Air 06/12/18 12:30 71 18 115/65 (82) 95 Room Air 06/12/18 11:25 66 18 122/68 (86) 97 Room Air 06/12/18 10:30 65 16 110/66 (81) 100 2.0 06/12/18 10:05 62 18 111/69 (83) 98 06/12/18 09:35 36.5 67 16 123/72 (89) 100 Nasal Cannula 2.0 06/12/18 09:35 Nasal Cannula 2.0 06/12/18 09:35 Nasal Cannula 2.0 06/12/18 09:10 36.7 67 14 125/67 100 Nasal Cannula 2 06/12/18 09:05 36.7 66 14 133/58 100 Nasal Cannula 2 06/12/18 08:55 72 14 129/62 100 Nasal Cannula 2 06/12/18 08:45 81 14 133/76 100 Oxymask 10 Laboratory Results 24 Hours: Test 06/13/18 05:29 Hematocrit 32.8 % Hemoglobin 10.6 g/dL Prothromb Time International Ratio 1.0 Prothrombin Time 10.3 SECONDS Assessment & Plan Assessment: Day 1 s/p Left total knee arthroplasty Plan: Cont pain control with PO meds TEDs and Coumadin for DVT prophylaxis INR therapeutic range 1.8-2.2 Practice total knee precautions with use of immobilizer for first 48 hrs post op along with walker aide Plan on discharge later today after inhouse PT/OT with home health services. F/u at [facility] in 2 wks. Discharge Planning Discharge Planning: home with home health Pain Management: Percocet DVT Prophylaxis: TEDs, Coumadin Therapy: Physical Therapy, Occupational Therapy
--- NOTE | 2018-06-13 08:44 | Discharge Instructions ---
Discharge Instructions Date of Service Jun 12, 2018. Admission Reason for Admission: Left Knee Degenerative Joint Disease Discharge Discharge Diagnosis / Problem: Left knee total knee replacement Discharge Goals Goal(s): Decrease discomfort, Improve function, Increase independence Activity Recommendations Activity Limitations: as noted below Lifting Limitations: gradually increase as tolerated Exercise/Sports Limitations: until after follow-up appointment Shower/Bathe: keep incision dry Driving or Machine Use: No driving until cleared by Dr. Woodall Weightbearing Status: Left weightbearing (as tolerated) . Instructions / Follow-Up Instructions / Follow-Up New Medicine: * You will likely be taking one or more of these medications: 1. Percocet - Take, as directed, when you need it, every four to six hours to control your pain. 2. Coumadin - Thins your blood to lessen the chance of forming a blood clot. The dose of this is different for each person and is based on your blood tests that are done twice a week. * The most common side effects of pain medicine and iron are nausea and constipation. If nausea or constipation is too much of a problem or if you have any questions about your new medicines or doses, call [facility] at . We will try to help you manage these issues. VERY IMPORTANT TO READ AND REVIEW" Blood Clots and Blood Thinning Medicine: * You are given Coumadin during the immediate post-operative period to lessen the risk of blood clots forming in your legs and/or lungs. Coumadin is usually given for six weeks after surgery. * The prescription is for 2 mg tablets. At discharge, you should understand your dose and take it all at the same time every day, preferably after dinner. * You need to get your blood checked 1 - 2 times per week for six weeks or as directed. * If your dose needs to change, we will call you. Do not take your medication on the day of the blood test until we call you. Pain: * The immediate post-operative period after knee replacement surgery is often quite painful. * You are given a prescription for pain medicine. You should take it, as directed, when you need it, especially before physical therapy and before going to bed. Pain that interferes with sleep is very common and can last several months. * You will likely need pain medicine for the first four to six weeks. It will not stop all of the pain. The pain will lessen and as you feel better, you may change to milder pain medicine such as Tylenol. * The most common side effects of pain medicine are nausea and constipation, so don't take more than you need. Physical Therapy: * You will have physical therapy two or three times each week for four to six weeks after your surgery in order to regain your knee range of motion and to retrain your knee to work properly. * It is just as important to make sure you are getting your knee perfectly straight as it is to regain your knee bend. * Taking a pain pill an hour before therapy can help you have a more productive and comfortable therapy session if needed. Home Exercise: * You were shown a series of exercises (heel props, heel slides, etc.) in the hospital. Do these exercises three to four times each day including the exercises you were shown in physical therapy. Walking: * Get up and walk several times each day. For the first four weeks, try not to stand or walk for more than one hour at a time. If you do stand or walk for more than one hour, you will not hurt anything, but your knee and leg will likely swell. * As you feel comfortable, you may change from the walker or crutches to a cane and then to independent walking. SELF CARE INSTRUCTIONS AFTER TOTAL KNEE REPLACEMENT A. You may need to continue a physical therapy program after discharge from the hospital. There are several options available to you. Your doctor will assist you in selecting the best one for you. 1. An out-patient facility 2 to 3 times a week for therapy or home therapy. 2. Continue working on all exercises taught to you in the hospital. Your goals should be to increase bending of your knee to 90 degrees and beyond and to fully straighten your knee. B. You may progress at your own pace from walking with a walker or crutches to a cane; then to no assistive devices. C. Make walking a part of your daily routine. Be up as much as comfortable with rest periods throughout the day. Rest with leg elevation is very important. Use the ice wrap frequently for the first 3-4 weeks. D. There are no restrictions on activities. You may ride in a car, shop, participate in pediatric dental hygienist and all social activities. E. Wear the long elastic stockings (PAULA hose) 20 hours a day for six weeks after surgery. They can be removed several times a day for laundering and for a shower. F. Do not place a pillow behind your knee when resting. A pillow at your ankle is okay. VERY IMPORTANT TO READ AND REVIEW A. Take Coumadin, Aspirin or Lovenox (blood thinning medications) as directed by your doctor. If on Coumadin, have a pro-time (blood test) drawn according to your doctor's instructions. This will tell the doctor how well the Coumadin is thinning your blood. 1. YOU WILL BE GIVEN AN ORDER AT DISCHARGE FOR PT/INR (BLOOD WORK). PLEASE HAVE THIS DONE INSTRUCTED. PLEASE CALL OUR OFFICE AFTER YOUR BLOODWORK IS COMPLETE SO WE CAN TRACK YOUR RESULTS. IF YOU ARE GOING TO OUTPATIENT PHYSICAL THERAPY, YOU WILL NEED TO GO TO OUTPATIENT TESTING TO HAVE IT DRAWN. B. There are a few signs you need to watch for after you are home. Call [facility] if you notice any of the followin. Increased severe knee pain. Some pain is expected especially when you exercise. 2. Increased swelling in your leg or knee; pain or swelling of the calf muscle in either lower leg. 3. Any fluid drainage from the incision. 4. Shortness of breath or chest pain. C. Please call [facility] at if you have any concerns or questions about your operation or recovery. The doctor or his nurse will return your call promptly. D. You must take antibiotics before dental work, bladder, bowel or other surgery. Call the office to obtain a prescription at least 2 days prior to your appointment. * CALL IF INCREASED PAIN, REDNESS, DRAINAGE OR FEVER GREATER THAT 101. * Sutures should be removed 12-14 days after surgery unless you are on chronic steriods, then it will be 14-18 days after surgery. Call your doctor if: * Temperature above 101 degrees F. * Pain not relieved by pain medicine ordered. * Increased drainage or redness from incision. * Notify your doctor with any questions or concerns. Current Hospital Diet Patient's current hospital diet: Regular Diet Discharge Diet Recommended Diet: Regular Diet Procedures Procedures Performed: Left Total Knee Arthroplasty Pending Studies Studies pending at discharge: no Medical Emergencies . Who to Call and When: Medical Emergencies: If at any time you feel your situation is an emergency, please call 911 immediately. . Non-Emergent Contact Non-Emergency issues call your: Primary Care Provider, Surgeon Call Non-Emergent contact if: temperature is above 101, wound has increased drainage, wound has increased redness, wound has increased pain, you have any medication questions . "Provider Documentation" section prepared by Ru Parnell PA-C. . [place] Drug Monitoring Program Search Results: patient reviewed within database, no issues identified
[2018-06-13 09:22] VITALS: BP 129/71; PULSE 71; TEMP 37; O2SAT 96
== END 2018-06-13 11:42 | disposition home health service (06) | DRG 470 ==
LOC: C.ACU 05:06 → C.3E 06:10 → ENRESERV 08:56
PROVIDERS: ADMIT Physical Medicine & Rehabilitation Sports Medicine; ATTEND Physical Medicine & Rehabilitation Sports Medicine
PROC: 0SRD0J9 Replacement of Left Knee Joint with Synthetic Substitute, Cemented, Open Approach (ICD-10-PCS; principal; 2018-06-12 07:00)
DX: M17.12 Unilateral primary osteoarthritis, left knee (principal); M21.162 Varus deformity, not elsewhere classified, left knee; I10 Essential (primary) hypertension; E78.00 Pure hypercholesterolemia, unspecified; E66.9 Obesity, unspecified; Z68.30 Body mass index [BMI] 30.0-30.9, adult; Z96.651 Presence of right artificial knee joint; Z96.612 Presence of left artificial shoulder joint; Z79.899 Other long term (current) drug therapy; Z88.0 Allergy status to penicillin; Z88.2 Allergy status to sulfonamides; Z91.048 Other nonmedicinal substance allergy status